=== PATIENT | female | born 1975 | race Caucasian/White ===

== ENCOUNTER 2020-02-22 05:51 | Inpatient (IN) ==
--- NOTE | 2020-02-12 13:08 | PAT Medication Instructions ---
Medication Instructions Date of Service February 12, 2020 Home Medications acetaminophen [Tylenol Extra Strength] 1,000 mg PO Q6H PRN citalopram 10 mg PO QAM turmeric root extract 500 mg PO QAM STOP taking 2 weeks before surgery If surgery is within 2 weeks, stop taking as soon as possible. turmeric root extract 500 mg PO QAM Take morning of surgery With a small sip of water, OTHERWISE NOTHING TO EAT OR DRINK AFTER MIDNIGHT: acetaminophen [Tylenol Extra Strength] 1,000 mg PO Q6H PRN (if needed, may be taken up to four hours before surgery) citalopram 10 mg PO QAM Other Notes If you have any questions please call us at [phone] or [phone] or [phone] or [phone]
--- NOTE | 2020-02-13 13:56 | Anesthesiology Consultation ---
Date of Service February 13, 2020 Assessment & Plan (1) Encounter for pre-operative examination: COVID Status: As of 02/12 assessment, patient denies travel to endemic area, known exposure/sick contacts, or symptoms of COVID19. Patient instructed that they and their household members must follow strict social distancing guidelines, wear a mask in public and avoid travel for 14 days prior to surgery. Preoperative COVID19 testing to be completed prior to surgery per surgeon's arr angements. Patient made aware to self-isolate as much as possible between COVID testing and surgery. Chart Review Chart Review: Acceptable Risk for Surgery and Patient seen in Pre Admission Testing Teaching & Discussion Instructed NPO after midnight before surgery, except medications with 15 cc of water. Medication instructions provided according to the PAT guidelines. History Surgery Operation Date: 02/22/20 10:05 Proposed Procedures p C5-C6 Anterior Cervical Discectomy and Fusion, Spinal Cord Monitoring - Iglesia Adhikari DO Height/Weight Height: 5 ft 4 in Weight: 79.6 kg Allergies Allergy/AdvReac Type Severity Reaction Status Date / Time No Known Allergies Allergy Verified 02/08/20 14:51 Medications Home Medications Medication Instructions Recorded Confirmed Last Taken acetaminophen [Tylenol Extra 1,000 mg PO Q6H PRN 02/08/20 02/08/20 Unknown Strength] citalopram 10 mg PO QAM 02/08/20 02/08/20 Unknown turmeric root extract 500 mg PO QAM 02/08/20 02/08/20 Unknown Past Medical History Medical History Anxiety Chronic back pain NECK TO LEFT ARM Exercise / Class Metabolic Activity II 4-5 Yardwork/Stairs/Walk up hill Past Surgical History Surgical History History of section History of hysterectomy Past Anesthesia History No Hx of Anesthesia Complications and No Family Hx of Anesthesia Complications History of PONV No Hx of PONV and No Hx of Motion Sickness STOP BANG Total 0 Social History Smoking Status: Never smoker Do You Dip or Chew Tobacco: No Hx Alcohol Use: Yes Alcohol type: beer alcohol intake frequency: a few times a week Hx Substance Use: No Review of Systems Pt denies any recent chest pain, shortness of breath, palpitations, cough, fever, URI, or uncontrolled acid reflux. Physical Exam Vital Signs BP: 125/81 P: 75bpm SPO2: 97% RA T: 98.6 F R: 16 ENMT Mouth: no dental restorations, no chipped teeth and no loose teeth Thyromental Distance: > or= 3.5 Finger Breadths Mallampati Class: II Neck normal visual inspection; neck extension not limited Respiratory normal respiratory effort Auscultation: lungs clear to auscultation bilaterally Cardiovascular Rate/Rhythm: regular rate and regular rhythm Heart Sounds: no murmur Extremities: no edema Testing Laboratory Results 02/13/20 14:14 02/13/20 14:14 PT 10.2 Seconds (9.0-12.0) 02/13/20 14:14 INR 1.0 (0.9-1.1) 02/13/20 14:14 APTT 27.3 Seconds (21.0-31.0) 02/13/20 14:14 Urine Color Yellow 02/13/20 Unknown Urine Appearance Clear (Clear) 02/13/20 Unknown Urine pH 7.5 (4.5-7.5) 02/13/20 Unknown Ur Specific [place] 1.013 (1.000-1.030) 02/13/20 Unknown Urine Protein Negative (Negative) 02/13/20 Unknown Urine Glucose (UA) Negative (Negative) 02/13/20 Unknown Urine Ketones Negative (Negative) 02/13/20 Unknown Urine Nitrite Negative (Negative) 02/13/20 Unknown Ur Leukocyte Esterase Negative (Negative) 02/13/20 Unknown Blood Type O Positive 02/13/20 14:14 Antibody Screen NEGATIVE 02/13/20 14:14 Electrocardiogram Date: 02/13/20 Findings: + NSR @ (67bpm) Nonspecific TWA. Chest X-Ray Date: 02/13/20 Findings: + NAD
--- NOTE | 2020-02-13 14:49 | XRay Report ---
XR chest Pre-admission PA/Lat HISTORY: 45 years-old Female pat preoperative exam. No acute chest complaints COMPARISON: None TECHNIQUE: PA and lateral views of the chest FINDINGS: The cardiomediastinal and hilar silhouettes are within normal limits. There is no pneumothorax, pleur al effusion, airspace consolidation or overt pulmonary edema. Bones of the chest appear grossly intac t. Lateral right lung base is partially excluded from the [id number]. Bones appear grossly intact. IMPRESSION: No acute process. ACT 112: Negative or not required by law. The above report was generated using voice recognition software. It may contain grammatical, syntax o r spelling errors. Electronically signed by: Chi Khan M.D. 02/13/2020 2:48 PM
[2020-02-13 16:00] LABS: Appearance Urine Clear (Clear); Bilirubin Urine Negative (Negative); Blood Urine Negative (Negative); Color Urine Yellow; Glucose Urine UA Negative (Negative); Ketones Urine Negative (Negative); Leukocyte Esterase Urine Negative (Negative); Nitrite Urine Negative (Negative); Protein Urine Negative (Negative); Specific Gravity Urine 1.013 (1.000-1.030); Urobilinogen Urine Negative (Negative); pH Urine 7.5 (4.5-7.5)
[2020-02-13 16:00] LABS: Basophils # (auto) 0.01 K/uL (0-0.2); Basophils % (auto) 0.1 %; Eosinophils # (auto) 0.11 K/uL (0-0.5); Eosinophils % (auto) 1.5 %; Hematocrit (blood only) 42.3 % (37-47); Hemoglobin 14.9 g/dL (12.0-16.0); Immature Granulocytes # (auto) 0.03 K/uL (0.00-0.02); Immature Granulocytes % (auto) 0.4 %; Lymphocytes # (auto) 1.88 K/uL (1.2-3.4); Lymphocytes % (auto) 25.1 %; Mean Corpuscular Hgb Conc 35.2 g/dL (32-36); Mean Corpuscular Volume 90.8 fL (80-100); Mean Platelet Volume 10.7 fL (7.4-10.4); Monocytes # (auto) 0.23 K/uL (0.11-0.59); Monocytes % (auto) 3.1 %; Neutrophils # (auto) 5.22 K/uL (1.4-6.5); Neutrophils % (auto) 69.8 %; Platelet Count 207 K/uL (130-400); RDW Coefficient of Variation 13.3 % (11.5-14.5); RDW Standard Deviation 44.3 fL (36.4-46.3); Red Blood Count 4.66 M/uL (4.2-5.4); White Blood Count 7.48 K/uL (4.8-10.8)
[2020-02-13 16:10] LABS: BUN Creatinine Ratio 24.4 (10-20); Calcium 8.7 mg/dl (8.5-10.1); Creatinine Clr Calc Pharmacy 96.2 ml/min; Est GFR (African American) 109.6; Est GFR (Non-African American) 94.6; Potassium 4.4 mmol/L (3.5-5.1)
[2020-02-13 16:12] LABS: Partial Thromboplastin Time 27.3 Seconds (21.0-31.0); Prothrombin Time 10.2 Seconds (9.0-12.0)
--- NOTE | 2020-02-14 06:00 | Electrocardiogram Report ---
Test Reason : Blood Pressure : / mmHG Vent. Rate : 067 BPM Atrial Rate : 067 BPM P-R Int : 166 ms QRS Dur : 092 ms QT Int : 426 ms P-R-T Axes : 052 -12 000 degrees QTc Int : 450 ms Normal sinus rhythm Nonspecific T wave abnormality Abnormal ECG No previous ECGs available Confirmed by Lennox Rosas ([id number]) on 02/14/2020 6:00:12 AM Referred By: Iglesia Adhikari Confirmed By:Lennox Rosas
[2020-02-22] MEDS ORDERED: LR 15ML/HR IV SCH (06:00)
[2020-02-22] MEDS ORDERED: CeleBREX 200 MG CAP PO SCH (06:00)
[2020-02-22] MEDS ORDERED: GABAPENTIN 900 MG DOSE PO SCH (06:00)
[2020-02-22] MEDS ORDERED: ACETAMINOPHEN 500 MG TAB PO SCH (06:00)
[2020-02-22] MEDS ORDERED: ceFAZolin 1000MG 1,000 MG/7.5 ML SYR IV SCH (06:00)
[2020-02-22] MEDS ORDERED: ONDANSETRON INJ 2 MG/ML 2 ML VIAL IV PRN ×2 (06:45→10:38)
[2020-02-22] MEDS ORDERED: fentaNYL citrate 100 MCG/2 ML VIAL IV PRN (06:45)
[2020-02-22] MEDS ORDERED: ATROPINE SULFATE 0.1 MG/ML 10ML SYR IV PRN (06:45)
[2020-02-22] MEDS ORDERED: ePHEDrine sulfate 50 MG/ML AMP IV PRN (06:45)
[2020-02-22] MEDS ORDERED: HYDROmorphone INJ 1 MG/ML SYRINGE IV PRN ×2 (06:45→10:38)
[2020-02-22] MEDS ORDERED: BACITRACIN INJ 50,000 UNIT VIAL ONE (07:00)
[2020-02-22] MEDS ORDERED: ROCURONIUM BROMIDE 10 MG/ML 5 ML VIAL IV ONE (07:15)
[2020-02-22] MEDS ORDERED: PROPOFOL IV EMULSION 10 MG/ML 20 ML VIAL IV ONE (07:15)
[2020-02-22] MEDS ORDERED: ONDANSETRON INJ 2 MG/ML 2 ML VIAL ONE (07:15)
[2020-02-22] MEDS ORDERED: DEXAMETHASONE SOD INJ 4 MG/ML VIAL ONE (07:15)
[2020-02-22] MEDS ORDERED: LIDOCAINE HCL 2% 2 ML VIAL/AMP(20MG/ML) INFIL ONE (07:15)
[2020-02-22] MEDS ORDERED: fentaNYL citrate 100 MCG/2 ML VIAL ONE (07:15)
[2020-02-22] MEDS ORDERED: MIDAZOLAM HCL 1 MG/ML 2ML VIAL ONE (07:15)
--- NOTE | 2020-02-22 07:37 | History & Physical Bridge Note ---
Date of Service February 22, 2020 History & Physical Bridge Note I have examined the patient, reviewed the History & Physical and in the interval since the performance of the History & Physical I have noted the following changes of clinical significance: no changes noted
--- NOTE | 2020-02-22 07:38 | History & Physical Report ---
Date of Service February 22, 2020 Assessment & Plan (1) Cervical stenosis of spinal canal: Admission and Anticipated Discharge Date Admission Date: C5-C6 anterior cervical discectomy and fusion History of Present Illness Chief Complaint: Neck and arm pain Primary Care Provider: Jeramie Le PA-C This is a 45-year-old female presents with neck and arm symptoms. After failing course of nonoperative care is here for surgical invention. Allergies Allergy/AdvReac Type Severity Reaction Status Date / Time No Known Allergies Allergy Verified 02/22/20 06:18 Home Medications Home Medications Medication Instructions Recorded Confirmed Type acetaminophen [Tylenol Extra 1,000 mg PO Q6H PRN 02/08/20 02/22/20 History Strength] citalopram 10 mg PO QAM 02/08/20 02/22/20 History turmeric root extract 500 mg PO QAM 02/08/20 02/22/20 History Past Med/Surg History Medical History Anxiety Chronic back pain NECK TO LEFT ARM Surgical History History of section History of hysterectomy Social History Smoking Status: Never smoker Second Hand Exposure: Yes ( A CHILD); Do You Dip or Chew Tobacco: No; Hx Alcohol Use: Yes Alcohol type: beer Hx Substance Use: No Preferred Language: Albanian Communication Ability: Effective Air Carrier Inspector Required: No Beliefs That Will Affect Care: None Current Living Situation: Spouse and Family Other Information That Helps Us Care for You: No Feels Safe at Home: Yes Safety Concerns: Feels Safe At This Time Physical Exam Physical Exam: Patient alert and oriented Heart regular rate and rhythm Lungs clear to auscultation Results & Data ([facility]) Vital Signs (Past 12 Hours) Vital Signs Temp Pulse Resp BP Pulse Ox 02/22/20 06:22 36.6 C 70 20 142/97 H 99
[2020-02-22] MEDS ORDERED: FLOSEAL HEMOSTATIC MATRIX 10ML TOP ONE (08:23)
[2020-02-22] MEDS ORDERED: SUGAMMADEX SODIUM 200 MG/2 ML VIAL IV ONE (08:54)
[2020-02-22] MEDS ORDERED: GLYCOPYRROLATE 0.2 MG/ML VIAL ONE (08:59)
[2020-02-22] MEDS ORDERED: NEOSTIGMINE METHYLSULFATE 1 MG/ML 10ML VIAL ONE (08:59)
--- NOTE | 2020-02-22 09:05 | Operative Report ---
Post Operative Report Pre & Post Diagnosis Operation Date: 02/22/20 07:45 Pre-Op Diagnosis: Spinal Stenosis, Cervical Region C5-C6 Post-Op Diagnosis: Spinal Stenosis, Cervical Region C5-C6 I identified the patient and participated in the time-out.: Yes Procedure Operation Date: 02/22/20 07:45 Actual Procedures #1 anterior cervical discectomy with bilateral foraminotomies C5-C6. #2 anterior cervical arthrodesis C5-C6. #3 placement of Spira 7 mm cage filled with DBM at C5-C6. #4 application of 5 complete and screws across C5-C6. Surgeon Iglesia Adhikari, Mgmt Specialist Lilian Lynn Estimated Blood Loss 10 Findings Consistent with Post-Op Diagnosis Specimens None Indications This is a 45-year-old female presents with above-mentioned diagnosis and severe radiculopathy. After failing extensive course of nonoperative care is here for surgical intervention. Description of Procedure Patient was met with identified informed consent obtained. Patient was then taken to the operative suite underwent an patient placed in a supine position on the Arsh table head Ferris velasquez. All bony prominences well-padded eyes inspected to ensure no external pressure placed upon the. This point the anterior cervical spine was prepped and draped in normal sterile fashion. The assistance of fluoroscopy identified the C5-C6 level and a transverse incision was placed along the right anterior aspect of the cervical spine overlying his region. Sharp dissection with the assistance of bipolar electrocautery was performed down to and exposing the anterior cervical spine at C5 and C6. Self- retaining retractors placed. Then performed a complete discectomy of C5-6 out to the uncovertebral joints bilaterally. [place] distracting pins were utilized to assist in visualization. Removed all posterior annular fibers and longitudinal ligament and found several massive fragments of disc material occupying the left neural foramen. After complete decompression endplates were burred to subcortical bleeding bone and a 7 mm Spira cage filled with DBM tapped in position. Appropriate size plate was then locked in position and the incision was then copiously irrigated explored to ensure no damage to surrounding structures remaining bleeding. 10 round TINY drain inserted. Incis ion was then closed with 2 Vicryl in a fashion of 4 Monocryl for final skin closure. Steri-Strip sterile dressings placed. Patient waken taken PACU stable condition. Please note spinal cord monitoring was last that the procedure no changes noted. Lastly Lilian Lynn was present throughout the entire surgery involved the patient positioning complex portions of the surgery and final skin closure. I attest to the content of the Intraoperative Record and any orders documented therein. Any exceptions are noted below.
--- NOTE | 2020-02-22 09:35 | Fluoroscopy Report ---
FL cervical 2-3V HISTORY: 45 years-old Female ACDF C5-6 cervical spine fusion COMPARISON: None TECHNIQUE: 2 spot fluoroscopic images of the cervical spine were obtained utilizing 8.2 seconds fluor oscopy time FINDINGS: Anterior plate and screw fusion with discectomy changes at C5-C6. The hardware appears intact. Satisf actory alignment. Endotracheal tube is noted along with a surgical drainage catheter. A surgical spon ge is noted on the lateral view anterior to the fusion hardware, not appreciated on the frontal proje ction. IMPRESSION: Fluoroscopic assistance as above. Please see operative report for further details. ACT 112: Negative or not required by law. The above report was generated using voice recognition software. It may contain grammatical, syntax o r spelling errors. Electronically signed by: Chi Khan M.D. 02/22/2020 9:33 AM
[2020-02-22] MEDS ORDERED: ALUMINUM/MAGNESIUM SUSP 30 ML UDC PO PRN (10:38)
[2020-02-22] MEDS ORDERED: hydrOXYzine HCl 25 MG TAB PO PRN (10:38)
[2020-02-22] MEDS ORDERED: FAMOTIDINE 20 MG TAB PO PRN (10:38)
[2020-02-22] MEDS ORDERED: LORazepam 0.5 MG/1 ML VIAL IV PRN (10:38)
[2020-02-22] MEDS ORDERED: PROMETHAZINE HCL 12.5 MG in SODIUM CHLORIDE 0.9% 50 ML IV PRN (10:38)
[2020-02-22] MEDS ORDERED: RACEPINEPHRINE 2.25% NEBU SOLN 0.5 ML VIAL INH PRN (10:38)
[2020-02-22] MEDS ORDERED: METOCLOPRAMIDE HCL INJ 5 MG/ML 2 ML VIAL IV PRN (10:38)
[2020-02-22] MEDS ORDERED: traMADol HCL 50 MG TABLET PO PRN (10:38)
[2020-02-22] MEDS ORDERED: SOD PHOSPHATE/SOD BIPHOSPHATE ENEMA 132 ML BTL PR PRN (10:38)
[2020-02-22] MEDS ORDERED: LORazepam 0.5 MG TAB PO PRN (10:38)
[2020-02-22] MEDS ORDERED: HYDROmorphone INJ 0.5 MG/0.5 ML SYR IV PRN (10:38)
[2020-02-22] MEDS ORDERED: NALOXONE HCL 0.4 MG/1 ML VIAL/CARP IV PRN (10:38)
[2020-02-22] MEDS ORDERED: DO NOT ADMINISTER PNEUMOCOCCAL VACCINE PRN (10:38)
[2020-02-22] MEDS ORDERED: MAGNESIUM HYDROXIDE SUSP 30 ML UDC PO PRN (10:38)
[2020-02-22] MEDS ORDERED: oxyCODONE HCL IR 5 MG TAB (IMMEDIATE RELEASE) PO PRN (10:38)
[2020-02-22] MEDS ORDERED: diphenhydrAMINE Capsule 25 MG CAP PO PRN (10:38)
[2020-02-22] MEDS ORDERED: ONDANSETRON 4 MG OD TAB PO PRN (10:38)
[2020-02-22] MEDS ORDERED: DO NOT ADMINISTER FLU VACCINE PRN (10:38)
[2020-02-22] MEDS ORDERED: DEXAMETHASONE SOD PHOSPHATE 8 MG in SYRINGE 0 ML IV PRN (10:38)
[2020-02-22] MEDS: LACTATED RINGER'S 1,000 ML IV SCH ×2 (12:30→21:38)
[2020-02-22] MEDS ORDERED: ACETAMINOPHEN 1,000 MG/100 ML VIAL IV PRN (14:00)
[2020-02-22] MEDS ORDERED: ACETAMINOPHEN 500 MG TAB PO PRN (14:00)
--- NOTE | 2020-02-22 14:43 | Anesthesiology Progress Note ---
Date of Service February 22, 2020 Anesthesia Post Procedure Vital Signs Vital Signs: Temp Pulse Pulse Resp BP Pulse Ox 02/22/20 13:42 36.3 C L 87 17 144/89 H 95 02/22/20 12:29 36.5 C 88 15 149/88 H 95 02/22/20 11:34 36.6 C 81 15 150/93 H 96 02/22/20 11:04 36.3 C L 71 16 139/89 97 02/22/20 10:53 79 16 98 02/22/20 10:30 36.7 C 73 16 149/87 H 98 02/22/20 10:15 74 20 143/93 H 97 02/22/20 10:05 37.0 C 76 13 143/90 H 98 02/22/20 09:55 64 13 138/88 98 02/22/20 09:45 79 13 146/93 H 97 02/22/20 09:35 83 19 146/91 H 99 02/22/20 09:25 76 15 141/92 H 100 02/22/20 09:17 36.2 C L 96 H 12 149/97 H 99 02/22/20 06:22 36.6 C 70 20 142/97 H 99 Pain Intensity Neck: Pain Intensity: 2 Transfer of Care Handoff Completed per policy Notes Mental Status: alert / awake / arousable and participated in evaluation Patient Amnestic to Procedure: Yes Nausea / Vomiting: adequately controlled Pain: adequately controlled Airway Patency, RR, SpO2: stable & adequate BP & HR: stable & adequate Hydration State: stable & adequate Anesthetic Complications: no major complications apparent and Pt Satisfied with anesthetic care
[2020-02-22] MEDS: ceFAZolin 2000MG 2,000 MG/15 ML SYR IV SCH ×2 (15:31→23:03)
[2020-02-22] MEDS ORDERED: CITALOPRAM 20 MG TAB PO SCH (21:00)
[2020-02-22] MEDS ORDERED: DOCUSATE SODIUM/SENNA 50/8.6MG TAB PO SCH (21:00)
--- NOTE | 2020-02-23 08:13 | Anesthesiology Progress Note ---
Date of Service February 23, 2020 Anesthesia Post Procedure Vital Signs Vital Signs: Temp Pulse Pulse Resp BP Pulse Ox 02/23/20 07:01 68 19 98 02/23/20 05:17 36.5 C 71 16 147/87 H 96 02/23/20 03:25 72 16 96 02/23/20 03:15 36.7 C 64 16 133/85 97 02/23/20 01:13 36.7 C 65 16 97 02/22/20 23:10 66 16 97 02/22/20 23:09 36.4 C L 59 L 16 137/89 97 02/22/20 21:31 36.8 C 71 16 136/83 96 02/22/20 19:35 36.6 C 92 H 16 140/88 97 02/22/20 19:19 90 14 94 02/22/20 17:30 36.4 C L 96 H 16 141/90 H 96 02/22/20 15:19 71 16 95 02/22/20 13:42 36.3 C L 87 17 144/89 H 95 02/22/20 12:29 36.5 C 88 15 149/88 H 95 02/22/20 11:34 36.6 C 81 15 150/93 H 96 02/22/20 11:04 36.3 C L 71 16 139/89 97 02/22/20 10:53 79 16 98 02/22/20 10:30 36.7 C 73 16 149/87 H 98 02/22/20 10:15 74 20 143/93 H 97 02/22/20 10:05 37.0 C 76 13 143/90 H 98 02/22/20 09:55 64 13 138/88 98 02/22/20 09:45 79 13 146/93 H 97 02/22/20 09:35 83 19 146/91 H 99 02/22/20 09:25 76 15 141/92 H 100 02/22/20 09:17 36.2 C L 96 H 12 149/97 H 99 Pain Intensity Neck: Pain Intensity: 2 Notes Mental Status: alert / awake / arousable Patient Amnestic to Procedure: Yes Nausea / Vomiting: adequately controlled Pain: adequately controlled Airway Patency, RR, SpO2: stable & adequate BP & HR: stable & adequate Hydration State: stable & adequate Anesthetic Complications: no major complications apparent and Pt Satisfied with anesthetic care
[2020-02-23] MEDS ORDERED: POLYETHYLENE (MIRALAX) 17 GM PACK PO SCH (09:06)
[2020-02-23] MEDS ORDERED: CITALOPRAM 20 MG TAB PO SCH (10:00)
--- NOTE | 2020-02-23 11:32 | Discharge Summary ---
Date of Service February 23, 2020 Admission HPI Per Admitting Provider This is a 45-year-old female presents with neck and arm symptoms. After failing course of nonoperative care is here for surgical invention. Principal Diagnosis Cervical spine disc herniation with radiculopathy Discharge Data Allergies Allergy/AdvReac Type Severity Reaction Status Date / Time No Known Allergies Allergy Verified 02/22/20 06:18 Procedures Performed Operation Date: 02/22/20 07:45 Actual Procedures p C5-C6 Anterior Cervical Discectomy and Fusion, Spinal Cord Monitoring - Iglesia Adhikari DO Ordered Studies 02/22/20 07:45 [place] cervical 2-3V Routine FL fluoroscopy <1hr Routine Hospital Course (1) Cervical stenosis of spinal canal: Patient went anterior cervical discectomy and fusion tolerated this well was taken to the orthopedic floor possibly. Postop day 1 she was up and ambulating arm symptoms markedly improved. Excellent strength testing. Swallowing well. No hoarseness. Subsequently discharged home. Discharge orders and instructions from the chart for further review. Total Time Total Time Spent Total Time Spent (In Minutes): 20 minutes Discharge Plan Discharge Items Patient Disposition: Home - Self-Care Reason For Visit: Spinal Stenosis, Cervical Region Discharge Diagnosis: Cervical disc herniation with radiculopathy Activity: As commented below Non-emergency contact: Primary Care Provider Call non-emergency contact if: you have any medication questions Follow-up/Referrals: Jeramie Le PA-C [Primary Care Provider] - Diet: Regular Addtl Attending Provider Instructions: ACTIVITY RECOMMENDATIONS: SELF CARE INSTRUCTIONS AFTER CERVICAL FUSIONS 1. No smoking. Smoking drastically decreases the chance of a solid fusion. 2. No bending, lifting more than 5 pounds, or twisting (roll like a log when turning in bed). 3. You may shower 3 days after surgery. Thoroughly dry wound. Do not soak in the tub. 4. Cervical collar: Must be worn at all times including sleeping. You may remove the brace only to bath, eat and if you are sitting in a recliner. 5. Please walk as much as you can for exercise. Gradually increase the distance that you walk as your endurance increases. SPECIAL CARE INSTRUCTIONS: VERY IMPORTANT TO READ AND REVIEW A. Do not take any anti-inflammatory medications (i.e. Indocin, Advil, Aspirin, Naprosyn, Aleve, Motrin, etc.) as these may inhibit the chance of a solid fusion. Tylenol is okay to take. B. Your surgical incision has been closed with a cosmetic suture under the skin that will dissolve in about 6 weeks. In 14 days, you can use a pair of clean scissors and cut the suture that is left outside of the skin at the ends of your incision. C. Complications are uncommon, but please contact us if you have any signs or symptoms of: 1. wound infection (fever higher than 102.5 degrees F, redness, separation of wound, drainage, or increasing pain from the incision) 2. blood clots in legs (pain, swelling, redness and warmth in legs) 3. urinary tract infection (fever higher than 102.5 degrees, burning upon urination or increased frequency of urination) 4. nerve problems (inability to walk on your toes or heels, numbness, loss of bowel or bladder control) 5. any other symptoms that concern you. D. Please call the office at if you have any concerns or questions about your operation or recovery. MANAGING PAIN AFTER SPINAL SURGERY 1. Narcotic medication is intended for short-term use and will be provided for surgical pain. Surgical pain usually lasts for a period of 4-6 weeks. Narcotic medication includes Percocet, Vicodin, Darvocet, Tylenol #3 or Lortab. 2. Longer-term pain is more appropriately treated with non-narcotic medication such as Tylenol ES. 3. Muscle spasm is not appropriately treated with narcotics. Muscle relaxers such as Soma, Flexeril or Skelaxin can be used along with Tylenol ES. 4. Remember that we all live with some "aches and pains". This is not unusual or uncommon after an injury or as we get older. 5. We will provide appropriate medication within the normal guidelines of their prescribed use. We will also be very cautious and aware of potential abuse and extended duration of patients' medication needs. 6. Please allow 2-3 days to process refills. Prescriptions will not be mailed but must be picked up at the office. FOLLOW UP VISIT: Keep your scheduled follow-up appointment. Any questions, please call the office at . Pending Studies at Discharge: No Stand-Alone Forms: My [employer] It, Smoking Cessation Medications and DC Order Prescriptions: New tramadol 50 mg tablet 50 mg PO Q6H PRN (Reason: pain, moderate) Qty: 15 RF: 0 oxycodone 5 mg tablet 5 mg PO Q6H PRN (Reason: pain, severe) Qty: 15 RF: 0 Continued citalopram 10 mg Tablet 10 mg PO QAM RF: 0 acetaminophen [Tylenol Extra Strength] 500 mg Capsule 1,000 mg PO Q6H PRN (Reason: Pain) RF: 0 turmeric root extract 500 mg Capsule 500 mg PO QAM RF: 0 Discharge Orders: Discharge Order (Routine); Ordered 02/23/20 Ordered By: Iglesia Brannon/Other Patient Handouts: DVT Post Op Prevention Admission Data Admit Date/Time: 02/22/20 15:31 Attending Provider: Iglesia Adhikari Admit Provider: Iglesia Adhikari Primary Care Provider: Jeramie Le Other Interventions: Discharge Summary Assessment (RN) Last Done: 02/23/20 10:47
[2020-02-24] MEDS ORDERED: bisacodyL 10 MG SUPP PR PRN (09:06)
== END 2020-02-23 12:58 | disposition home or self-care (01) | DRG 473 ==
LOC: ASU 05:51 → 3E 05:51